=== PATIENT | male | born 1970 | race Caucasian/White ===

== ENCOUNTER 2021-09-20 12:11 | Emergency (ER) | payer SELFPAY ==
[2021-09-20 12:28] VITALS: BP 123/72; PULSE 100; TEMP 98.6; BMI 41.5
[2021-09-21 15:09] LABS: SARS-CoV-2 NAA Detected (Not Detected)
== END 2021-09-20 13:51 | disposition home or self-care (01) ==
LOC: JER 12:11
DX: U07.1 COVID-19 (principal)
CPT/HCPCS: 87651; 87804; 99283-25; C9803; U0003; U0005

== ENCOUNTER 2021-12-11 17:55 | Emergency (ER) | payer SELFPAY ==
[2021-12-11 18:23] VITALS: BP 155/68; PULSE 78; TEMP 98.6; BMI 46.3
[2021-12-11] MEDS ORDERED: KETOROLAC TROMETHAMINE 30 MG/1 ML VIAL IM ONE (20:52)
[2021-12-11] MEDS ORDERED: ACETAMINOPHEN 500 MG TABLET (FP) PO ONE (20:52)
[2021-12-11] MEDS ORDERED: CYCLOBENZAPRINE HCL 10 MG TABLET (FP) PO ONE (20:56)
[2021-12-11] MEDS ORDERED: ACETAMINOPHEN 500 MG TABLET (FP) ONE (21:12)
[2021-12-11] MEDS ORDERED: CYCLOBENZAPRINE HCL 10 MG TABLET (FP) ONE (21:12)
[2021-12-11] MEDS ORDERED: KETOROLAC TROMETHAMINE 30 MG/1 ML VIAL ONE (21:12)
== END 2021-12-11 23:34 | disposition home or self-care (01) ==
LOC: JERFT 17:55 → JER 17:55 → JERFT 23:34
PROC: 3E0233Z Introduction of Anti-inflammatory into Muscle, Percutaneous Approach (ICD-10-PCS; principal; 2021-12-11)
DX: M54.32 Sciatica, left side (principal)
CPT/HCPCS: 72100-TC-FY; 99284-25

== ENCOUNTER 2022-09-28 14:43 | Emergency (ER) | payer SELFPAY ==
[2022-09-28 14:51] VITALS: BP 160/89; PULSE 98; RESP 20; TEMP 100.2; BMI 32.3
[2022-09-28 15:40] LABS: PH,URINE 5.5 (5.0-8.0); URINE APPEARANCE CLEAR; URINE BILIRUBIN NEGATIVE (NEGATIVE); URINE COLOR YELLOW; URINE GLUCOSE (UA) 3+ (NEGATIVE); URINE KETONE NEGATIVE (NEGATIVE); URINE LEUK ESTERASE NEGATIVE (NEGATIVE); URINE NITRITE NEGATIVE (NEGATIVE); URINE PROTEIN NEGATIVE (NEGATIVE); URINE UROBILINOGEN 0.2 mg/dL (0.2-1.0)
[2022-09-28] MEDS ORDERED: IBUPROFEN 600 MG TABLET (FP) PO ONE ×2 (15:42→15:43)
[2022-09-28 16:08] LABS: THROAT:GRP A STREP NOT DETECTED (NOTDETECTED)
== END 2022-09-28 16:38 | disposition home or self-care (01) ==
LOC: JERFT 14:43
DX: J10.1 Influenza due to other identified influenza virus with other respiratory manifestations (principal); R05.1 Acute cough; R50.9 Fever, unspecified; R51.9 Headache, unspecified; J02.9 Acute pharyngitis, unspecified
CPT/HCPCS: 0241U-QW; 71046-TC-FY; 81003; 87086; 87651; 93005; 93010; 99284-25

== ENCOUNTER 2024-03-27 12:47 | Emergency (ER) | payer SELFPAY ==
[2024-03-27 12:54] VITALS: BP 150/75; PULSE 91; RESP 18; TEMP 97.4; BMI 31.9
[2024-03-27] MEDS ORDERED: METHOCARBAMOL 500 MG TABLET ONE (13:55)
[2024-03-27] MEDS ORDERED: KETOROLAC TROMETHAMINE 30 MG/1 ML VIAL ONE (13:55)
[2024-03-27] MEDS: KETOROLAC TROMETHAMINE 30 MG/1 ML VIAL IM ONE (13:57)
[2024-03-27] MEDS: METHOCARBAMOL 500 MG TABLET PO ONE (13:57)
[2024-03-27 14:24] LABS: URINE APPEARANCE CLEAR; URINE BILIRUBIN NEGATIVE (NEGATIVE); URINE COLOR YELLOW; URINE GLUCOSE (UA) 3+ (NEGATIVE); URINE KETONE TRACE (NEGATIVE); URINE LEUK ESTERASE NEGATIVE (NEGATIVE); URINE NITRITE NEGATIVE (NEGATIVE); URINE PROTEIN NEGATIVE (NEGATIVE); URINE UROBILINOGEN 0.2 mg/dL (0.2-1.0)
[2024-03-27] MEDS: METHOCARBAMOL 750 MG TABLET PO ONE (14:25)
== END 2024-03-27 17:41 | disposition home or self-care (01) ==
LOC: JERFT 12:47
PROC: 3E0133Z Introduction of Anti-inflammatory into Subcutaneous Tissue, Percutaneous Approach (ICD-10-PCS; principal; 2024-03-27)
DX: M54.42 Lumbago with sciatica, left side (principal); E11.9 Type 2 diabetes mellitus without complications; R10.9 Unspecified abdominal pain; Z76.0 Encounter for issue of repeat prescription
CPT/HCPCS: 72131-TC; 74176-TC; 81003; 82962; 87086; 99284-25